=== PATIENT | female | born 1975 | race African-American/Black ===

== ENCOUNTER 2016-12-17 13:26 | Inpatient (IN) | payer OTHER, BC ==
[2016-12-17 13:31] VITALS: BMI 32.1
--- NOTE | 2016-12-17 13:45 | PDOC ---
History of Present Illness <Samantha Wynne - Last Filed: 12/17/16 16:01> - General History Source: Patient Exam Limitations: No Limitations - History of Present Illness Initial Comments: 12/17/16 13:48 Patient is a 41 year old female with significant PMH of HTN & ESRD on dialysis MWF who presents to ED after missing 2 weeks of dialysis. She lost her apartment 2 weeks ago and has been looking for a place to live so she has been too busy to come to dialysis as scheduled. Over that time period she has developed significant lethargy. She also reports chest tenderness, nausea, headache, mild shortness of breath. She states when she blows her nose, clotting blood is visible on tissue paper. Denies fever, chills, diarrhea constipation, blood in stool or urine. She denies any issues with graft in left arm: no erythema, tenderness or signs of infection. She states she has not been taking her anti-hypertensives during the last few weeks as well. <Mark Mahoney - Last Filed: 12/17/16 17:13> - General Chief Complaint: Weakness Stated Complaint: PAIN, WEAKNESS/Needs Dialysis Time Seen by Provider: 12/17/16 13:36 Past History <Samantha Wynne - Last Filed: 12/17/16 16:01> - Travel Traveled outside of the country in the last 30 days: No Close contact w/someone who was outside of country & ill: No - Past Medical History Anemia: Yes Asthma: No Cancer: No Cardiac Disorders: No CVA: No COPD: No CHF: No Dementia: No Diabetes: No Dialysis: Yes (Left arm graft) GI Disorders: No Disorders: Yes (PROTEIN IN URINE, CRI) HTN: Yes Hypercholesterolemia: No Liver Disease: No Suicide Attempt (Hx): No Seizures: No Thyroid Disease: Yes (HYPO) - Surgical History Abdominal Surgery: No Appendectomy: No Cardiac Surgery: No Cholecystectomy: No Lung Surgery: No Neurologic Surgery: No Orthopedic Surgery: No - Family Disease History Family Disease History: Diabetes: Brother - Reproductive History Cervical CA: No Dysfunctional Uterine Bleeding: No Ectopic : No Endometrial CA: No Polycystic Ovaries: No Tubal Ligation: No - Immunization History Immunization Up to Date: Yes - Psycho/Social/Smoking Cessation Hx Anxiety: No Suicidal Ideation: No Smoking Status: No Smoking History: Never smoked Have you smoked in the past 12 months: No Number of Cigarettes Smoked Daily: 0 Information on smoking cessation initiated: No Hx Alcohol Use: No Drug/Substance Use Hx: No Substance Use Type: None Hx Substance Use Treatment: No <Mark Mahoney - Last Filed: 12/17/16 17:13> - Past Medical History Allergies/Adverse Reactions: Allergies Allergy/AdvReac Type Severity Reaction Status Date / Time No Known Drug Allergies Allergy Verified 04/26/16 13:57 Home Medications: Ambulatory Orders Nifedipine ER [Procardia XL -] 60 mg PO DAILY 04/26/16 Miscellaneous Medical Supply [Outpatient Order] 1 each ASDIR #1 misc Losartan Potassium [Cozaar -] 50 mg PO DAILY #30 tablet 05/07/16 Sevelamer Carbonate [Renvela -] 800 mg PO TIDCM #90 tab 05/07/16 Review of Systems - Review of Systems Able to Perform ROS?: Yes Is the patient limited Syriac proficient: No Constitutional: Yes: Loss of Appetite, Malaise, Weakness HEENTM: Yes: Nose Bleeding Respiratory: Yes: Shortness of Breath Cardiac (ROS): Yes: Lightheadedness, Chest Tightness Neurological: Yes: Headache All Other Systems: Reviewed and Negative <Mark Mahoney - Last Filed: 12/17/16 17:13> *Physical Exam - Vital Signs Last Vital Signs Temp Pulse Resp BP Pulse Ox 97.4 F L 82 19 180/113 100 12/17/16 13:29 12/17/16 13:29 12/17/16 13:29 12/17/16 13:29 12/17/16 13:29 <Samantha Wynne - Last Filed: 12/17/16 16:01> - Vital Signs Last Vital Signs Temp Pulse Resp BP Pulse Ox 97.4 F L 82 19 180/113 100 12/17/16 13:29 12/17/16 13:29 12/17/16 13:29 12/17/16 13:29 12/17/16 13:29 - Physical Exam General Appearance: Yes: Nourished, Appropriately Dressed HEENT: positive: EOMI, ESA, Normal ENT Inspection, Pharynx Normal Neck: positive: Trachea midline, Supple Respiratory/Chest: positive: Lungs Clear, Normal Breath Sounds Cardiovascular: positive: Regular Rhythm, Regular Rate, S1, S2 Gastrointestinal/Abdominal: positive: Normal Bowel Sounds, Flat, Soft Musculoskeletal: positive: Normal Inspection Extremity: positive: Normal Inspection, Normal Range of Motion Integumentary: positive: Normal Color, Dry, Warm, Other (AV graft on left arm without signs of infection (no discharge, no erythema, no tenderness)) Neurologic: positive: attending physician II-XII NML intact, Fully Oriented, Alert, Normal Mood/ Affect, Motor Strength 5/5 <Mark Mahoney - Last Filed: 12/17/16 17:13> ED Treatment Course - LABORATORY CBC & Chemistry Diagram: 12/17/16 14:43 12/17/16 14:45 - ADDITIONAL ORDERS Additional order review: Laboratory Results 12/17/16 12/17/16 14:45 14:45 INR 1.06 Sodium 139 Potassium 6.5 H* D Chloride 105 Carbon Dioxide 15 L D Anion Gap 19 H BUN 147 H* D Creatinine 27.3 H* D Creat Clearance w eGFR 1.34 Random Glucose 85 Calcium 8.9 Magnesium 2.9 H D Total Bilirubin 0.4 AST 4 L D ALT 12 D Alkaline Phosphatase 72 Creatine Kinase 111 Troponin I 0.02 Total Protein 8.1 Albumin 4.0 D 12/17/16 14:43 RBC 2.97 L MCV 102.2 H MCHC 32.4 RDW 14.9 MPV 9.4 Neutrophils % 49.6 Lymphocytes % 32.3 D Monocytes % 12.6 H Eosinophils % 4.1 Basophils % 1.4 - Medications Given in the ED: ED Medications Discontinued Medications Generic Name Dose Route Start Last Admin Trade Name Baldemar PRN Reason Stop Dose Admin Losartan Potassium 50 mg 12/17/16 14:00 12/17/16 14:58 Cozaar - PO 12/17/16 14:01 50 mg ONCE ONE Administration <Samantha Wynne - Last Filed: 12/17/16 16:01> - LABORATORY CBC & Chemistry Diagram: 12/17/16 14:43 12/17/16 14:45 <Mark Mahoney - Last Filed: 12/17/16 17:13> Medical Decision Making - Medical Decision Making 12/17/16 16:01 Labs d/w Dr. Lucia, will dialyze presently. Will not treat the potassium medically, as she will go to dialysis shortly. <Samantha Wynne - Last Filed: 12/17/16 16:01> - Medical Decision Making 12/17/16 14:04 Patient's symptoms likely due to 2 weeks of missed dialysis. Ordered CBC, CMP, Mg, Phos, Coagulation profile, & EKG. Will restart Losartan as patient's blood pressure is elevated. Will attempt to get in contact with her appliance service technician. 12/17/16 14:59 Discussed case with Tie Up Worker Dr Lucia. Awaiting lab results but will most likely dialyze later today, and likely again tomorrow. 12/17/16 16:02 Creatinine 27. Potassium 6.5. Phosphorus too high to be measured at present. Patient will need to be admitted for dialysis today and tomorrow. Hyperkalemia will be managed by Dr Lucia. Will discuss case with hospitalist service for admission. 12/17/16 17:11 Discussed case with hospitalist Dr Mcdonough. Agrees to admit the patient for acute on chronic renal failure & electrolyte abnormalities. Dialysis scheduled for later this afternoon. <Mark Mahoney - Last Filed: 12/17/16 17:13> *DC/Admit/Observation/Transfer <Samantha Wynne - Last Filed: 12/17/16 16:01> - Discharge Dispostion Admit: Yes <Mark Mahoney - Last Filed: 12/17/16 17:13> Diagnosis at time of Disposition: [id number] renal failure
[2016-12-17] MEDS ORDERED: LOSARTAN POTASSIUM 50 MG TABLET (FP) PO ONE (14:00)
--- NOTE | 2016-12-17 14:50 | PDOC ---
Attending Attestation - Resident Resident Name: MaruMark - ED Attending Attestation I have performed the following: I have examined & evaluated the patient, The case was reviewed & discussed with the resident, I agree w/resident's findings & plan, Exceptions are as noted - HPI HPI: 41 yo F with history HTN, ESRD on HD MWF presents with fluid overload, weakness , fatigue. She has been unable to get dialysis for 2 weeks due to losing her apartment, financial difficulty. She has been off her blood pressure medication for the two weeks, has been unable to get a refill. Denies FLORENTINO, SOB, cp, numbness. - Physicial Exam PE: GENERAL: Awake, alert, and fully oriented, in no acute distress HEAD: No signs of trauma EYES: PERRLA, EOMI, sclera anicteric, conjunctiva clear ENT: Auricles normal inspection, hearing grossly normal, nares patent, oropharynx clear without exudates. Moist mucosa NECK: Normal ROM, supple, no lymphadenopathy, JVD, or masses LUNGS: Breath sounds equal, clear to auscultation bilaterally. No wheezes, and no crackles HEART: Regular rate and rhythm, normal S1 and S2, no murmurs, rubs or gallops ABDOMEN: Soft, nontender, normoactive bowel sounds. No guarding, no rebound. No masses EXTREMITIES: Normal range of motion, no edema. No clubbing or cyanosis. No cords, erythema, or tenderness NEUROLOGICAL: Cranial nerves II through XII grossly intact. Normal speech, normal gait SKIN: Warm, Dry, normal turgor, no rashes or lesions noted. - Medical Decision Making Case d/w Dr. Lucia, will arrange urgent dialysis. Will not medically treat the potassium at this time, as dialysis is being arranged presently.
[2016-12-17] MEDS ORDERED: LOSARTAN POTASSIUM 25 MG TABLET ONE (14:54)
[2016-12-17] MEDS ORDERED: NIFEdipine E.R 60 MG TABLET (UD) PO SCH (15:00)
--- NOTE | 2016-12-17 15:04 | CONSULT ---
Consult - text type - Consultation Consultation Note: Renal Consult for ESRD on HD This is a 41 year old woman with PMhx of ESRD on HD, Hypertension, Secondary hyperparathyrodism, CKD related anemia presented to the ED after missing 2 weeks of dialysis with complaints weakness, nausea, nose bleeds, and chest pain. Pt states that she lost her apartment and has been too busy to go to dialysis. Pt reports feeling worsening symptoms for about 1 week. + abnormal taste in the mouth. Reports not taking any her of hypertensive medications. Pt also has some headache. PMhx: as above Allergies: NKDA Family Hx: NC Social hx: No T/A/D ROS: as per HPI Home Meds: Medication Instructions Recorded Nifedipine ER [Procardia XL -] 60 mg PO DAILY 04/26/16 Miscellaneous Medical Supply 1 each ASDIR #1 misc 05/05/16 [Outpatient Order] Losartan Potassium [Cozaar -] 50 mg PO DAILY #30 tablet 05/07/16 Sevelamer Carbonate [Renvela -] 800 mg PO TIDCM #90 tab 05/07/16 Vital Signs Temperature 97.4 F L 12/17/16 13:29 Pulse Rate 82 12/17/16 13:29 Respiratory Rate 19 12/17/16 13:29 Blood Pressure 180/113 12/17/16 13:29 O2 Sat by Pulse Oximetry (%) 100 12/17/16 13:29 Intake & Output 12/14/16 12/15/16 12/16/16 12/17/16 23:59 23:59 23:59 23:59 Weight 176 lb Gen: NAD, awake and alert HEENT: NC/AT, No JVD, Neck Supple CVS: RRR, No M/R Lungs: Dec BS lung bases, no rales Abd: soft NT/ND Ext: No edema, clubbing or cyanosis : No bladder distension Labs pending A/P 41 year old woman with PMhx of ESRD on HD, Hypertension, Secondary hyperparathyrodism, CKD related anemia presented to the ED after missing 2 weeks of dialysis with complaints weakness, nausea, nose bleeds, and chest pain. #ESRD on HD with multiple missed dialysis treatments and uremic symptoms Pt will need dialysis today but will need to check BUN/Cr prior to treatment if BUN very elevated will plan on short dialysis treatment to minimize risk of dialysis dysequilibrium will likely need additional dialysis tomorrow Pt has outpatient HD unit and can resume dialysis there on discharge Dose all meds for intermittent HD #Uncontrolled Hypertension from volume expansion and non-compliance with medications Procadia 60mg Daily for now Can resume Losartan after dialysis treatments restarted #CKD releated Anemia Check CBC, transfuse for Hgb < 8 #Renal osteodystrophy Check Phos levels continue Renvela TID with meals #Chest Pain Check Cardiac Enzymes Thank you Will follow Carl Lucia DO
[2016-12-17 15:18] LABS: BASOPHIL 1.4 % (0-2.0); EOSINOPHIL 4.1 % (0-4.5); MCH 33.1 pg (25.7-33.7); MCHC 32.4 g/dl (32.0-36.0); MEAN CELL VOLUME 102.2 fl (80-96); MEAN PLT VOLUME 9.4 fl (7.5-11.1); NEUTROPHILS 49.6 % (42.8-82.8); PLATELET COUNT 134 K/MM3 (134-434); RDW 14.9 % (11.6-15.6); WHITE BLOOD COUNT 5.7 K/mm3 (4.0-10.0)
[2016-12-17 15:31] LABS: INR 1.06 (0.82-1.09); PROTHROMBIN TIME (PATIENT) 11.7 SEC (9.98-11.88)
[2016-12-17 15:37] LABS: CALCIUM 8.9 mg/dL (8.5-10.1); MAGNESIUM 2.9 mg/dL (1.8-2.4)
[2016-12-17 15:47] LABS: BILIRUBIN,TOTAL 0.4 mg/dL (0.2-1.0); TOT PROT 8.1 g/dl (6.4-8.2); TROPONIN I 0.02 ng/ml (0.00-0.05)
[2016-12-17 15:59] LABS: CREATININE 27.3 mg/dL (0.55-1.02)
--- NOTE | 2016-12-17 16:14 | EKG ---
Test Reason : Blood Pressure : / mmHG Vent. Rate : 076 BPM Atrial Rate : 076 BPM P-R Int : 202 ms QRS Dur : 086 ms QT Int : 426 ms P-R-T Axes : 026 054 074 degrees QTc Int : 479 ms NORMAL SINUS RHYTHM POOR DATA QUALITY, INTERPRETATION MAY BE ADVERSELY AFFECTED Confirmed by REGINALDO GARCIA MD ([id number]) on 12/17/2016 4:13:53 PM Referred By: Confirmed By:REGINALDO GARCIA MD
[2016-12-17 16:35] LABS: PHOSPHOROUS 8.2 mg/dL (2.5-4.9)
--- NOTE | 2016-12-17 18:05 | PN ---
Teaching Attending Note Name of Resident: Campbell Chopra ATTENDING PHYSICIAN STATEMENT I saw and evaluated the patient. I reviewed the resident's note and discussed the case with the resident. I agree with the resident's findings and plan as documented. SUBJECTIVE:41yo F reports to the ER c/o generalized weakness and nausea for several days. also c/o CP on exertion after walking 2 blocks assoc with sob. substernal sharp pain non radiating for the past week. she has not had HD for 2 weeks now due to becoming homeless and not having the time to go to her HD center. she has not taken her home meds in several months. admits to having poor compliance for years. on HD due to uncontrolled HTN and had miscarriage this time last year due to not being compliant. had echo done at that time but no stress test or other cardiac workup. denies fever, chills, V/C/D, blurred vision OBJECTIVE: Last Vital Signs Temp Pulse Resp BP Pulse Ox 97.4 F L 82 19 180/113 100 12/17/16 13:29 12/17/16 13:29 12/17/16 13:29 12/17/16 13:29 12/17/16 13:29 General NAD CV S1 S2 RRR no murmur/rub/gallop no chest wall tenderness Lungs CTA B/L no wheezing/rales/rhonchi Abdomen soft NT/ND obese Extremities +palpable thrill LUE graft ASSESSMENT AND PLAN: 41yo F wtih PMH ESRD on HD, HTN, and secondary hyperparathyroidism presented to the ER and was admitted for further evaluation of their emergent condition 1. Acute Uremia- due to missed HD. plan for emergent HD to correct uremic symptoms. Nephrology consulted. plan for repeat HD tomorrow. monitor BUN. cont renelva 2. HTN urgency- due to medication non-compliance. given losartan in the ER. she states she never took losartan previously prescribed on discharged in April of last year. will monitor BP closely. re-start nifedipine and slowly control BP 3. CP- r/o ACS. check cardiac markers x2. will need cardiac workup as outpatient 4. Macrocytic anemia- Hgb at baseline. states she receives epo with HD typically. no signs of bleeding. no indication for txn 5. DVT ppx- eam
--- NOTE | 2016-12-17 18:58 | HP ---
CHIEF COMPLAINT: weakness PCP: HISTORY OF PRESENT ILLNESS: 41 y/o F with PMH of ESRD on HD (MWF) secondary to htn, HTN, secondary hyperparathyroidism comes to ER after feeling weak and nauseous for 1 week. Pt has also developed exertional chest pain which comes about after walking 1-2 blocks and is relieved with 1-2 min of rest. Pt has missed dialysis for last 2 weeks as she is homeless. She is non-compliant with meds and following up with physicians as an outpatient. Had miscarriage last year due to non-compliance. She has been prescribed antihypertensives in the past but stated that she does not take them. ER course was notable for: (1) EKG (2) (3) Recent Travel: PAST MEDICAL HISTORY: HTN, ESRD on HD, secondary hyperparathyroidism PAST SURGICAL HISTORY: L AV graft Social History: Smoking: denies Alcohol: denies Drugs: denies Allergies No Known Drug Allergies Allergy (Verified 04/26/16 13:57) HOME MEDICATIONS: Medication Instructions Recorded Nifedipine ER [Procardia XL -] 60 mg PO DAILY 04/26/16 Miscellaneous Medical Supply 1 each ASDIR #1 misc 05/05/16 [Outpatient Order] Losartan Potassium [Cozaar -] 50 mg PO DAILY #30 tablet 05/07/16 Sevelamer Carbonate [Renvela -] 800 mg PO TIDCM #90 tab 05/07/16 REVIEW OF SYSTEMS CONSTITUTIONAL: generalized weakness Absent: fever, chills, diaphoresis,malaise, loss of appetite, weight change HEENT: Absent: rhinorrhea, nasal congestion, throat pain, throat swelling, difficulty swallowing, mouth swelling, ear pain, eye pain, visual changes CARDIOVASCULAR: chest pain (exertional) Absent: syncope, palpitations, irregular heart rate, lightheadedness, peripheral edema RESPIRATORY: sob Absent: cough, dyspnea with exertion, orthopnea, wheezing, stridor, hemoptysis GASTROINTESTINAL: Absent: abdominal pain, abdominal distension, nausea, vomiting, diarrhea, constipation, melena, hematochezia GENITOURINARY: Absent: dysuria, frequency, urgency, hesitancy, hematuria, flank pain, genital pain MUSCULOSKELETAL: Absent: myalgia, arthralgia, joint swelling, back pain, neck pain SKIN: Absent: rash, itching, pallor HEMATOLOGIC/IMMUNOLOGIC: Absent: easy bleeding, easy bruising, lymphadenopathy, frequent infections ENDOCRINE: Absent: unexplained weight gain, unexplained weight loss, heat intolerance, cold intolerance NEUROLOGIC: Absent: headache, focal weakness or paresthesias, dizziness, unsteady gait, seizure, mental status changes, bladder or bowel incontinence PSYCHIATRIC: Absent: anxiety, depression, suicidal or homicidal ideation, hallucinations. PHYSICAL EXAMINATION Vital Signs - 24 hr 12/17/16 17:49 Pulse Rate [ 83 Radial] Respiratory 20 Rate Blood Pressure 180/109 [Right Arm] O2 Sat by Pulse 97 Oximetry (%) GENERAL: Awake, alert, and fully oriented, in no acute distress. HEAD: Normal with no signs of trauma. EYES: Pupils equal, round and reactive to light, extraocular movements intact, sclera anicteric, conjunctiva clear. No lid lag. EARS, NOSE, THROAT: Ears normal, nares patent, oropharynx clear without exudates. Moist mucous membranes. NECK: Normal range of motion, supple without lymphadenopathy, JVD, or masses. LUNGS: Breath sounds equal, clear to auscultation bilaterally. No wheezes, and no crackles. No accessory muscle use. HEART: Regular rate and rhythm, normal S1 and S2 without murmur, rub or gallop. ABDOMEN: Soft, nontender, not distended, normoactive bowel sounds, no guarding, no rebound, no masses. No hepatomegaly or splenomegaly. MUSCULOSKELETAL: Normal range of motion at all joints. No bony deformities or tenderness. No CVA tenderness. UPPER EXTREMITIES: 2+ pulses, warm, well-perfused. No cyanosis. No clubbing. Cap refill <2 seconds. No peripheral edema. LOWER EXTREMITIES: 2+ pulses, warm, well-perfused. No calf tenderness. No peripheral edema. NEUROLOGICAL: Cranial nerves II-XII intact. Normal speech. Normal gait. PSYCHIATRIC: Cooperative. Good eye contact. Appropriate mood and affect. SKIN: Warm, dry, normal turgor, no rashes or lesions noted. CBCD WBC 5.7 K/mm3 (4.0-10.0) D 12/17/16 14:43 RBC 2.97 M/mm3 (3.60-5.2) L 12/17/16 14:43 Hgb 9.8 GM/dL (10.7-15.3) L 12/17/16 14:43 Hct 30.3 % (32.4-45.2) L 12/17/16 14:43 MCV 102.2 fl (80-96) H 12/17/16 14:43 MCHC 32.4 g/dl (32.0-36.0) 12/17/16 14:43 RDW 14.9 % (11.6-15.6) 12/17/16 14:43 Plt Count 134 K/MM3 (134-434) D 12/17/16 14:43 MPV 9.4 fl (7.5-11.1) 12/17/16 14:43 CMP Sodium 139 mmol/L (136-145) 12/17/16 14:45 Potassium 6.5 mmol/L (3.5-5.1) H* D 12/17/16 14:45 Chloride 105 mmol/L (98-107) 12/17/16 14:45 Carbon Dioxide 15 mmol/L (21-32) L D 12/17/16 14:45 Anion Gap 19 (8-16) H 12/17/16 14:45 BUN mg/dL (7-18) 12/17/16 14:45 Creatinine 27.3 mg/dL (0.55-1.02) H* D 12/17/16 14:45 Creat Clearance w eGFR 1.34 (>60) 12/17/16 14:45 Random Glucose 85 mg/dL (74-106) 12/17/16 14:45 Calcium 8.9 mg/dL (8.5-10.1) 12/17/16 14:45 Total Bilirubin 0.4 mg/dL (0.2-1.0) 12/17/16 14:45 AST 4 U/L (15-37) L D 12/17/16 14:45 ALT 12 U/L (12-78) D 12/17/16 14:45 Alkaline Phosphatase 72 U/L (45-117) 12/17/16 14:45 Total Protein 8.1 g/dl (6.4-8.2) 12/17/16 14:45 Albumin 4.0 g/dl (3.4-5.0) D 12/17/16 14:45 CARDIAC ENZYMES Creatine Kinase 111 IU/L (26-192) 12/17/16 14:45 Troponin I 0.02 ng/ml (0.00-0.05) 12/17/16 14:45 Active Medications Acetaminophen (Tylenol -) 650 mg PO Q4H PRN PRN Reason: FEVER OR PAIN Nifedipine (Procardia Xl -) 60 mg PO DAILY JILLIAN Sevelamer Carbonate (Renvela -) 800 mg PO TIDCM JILLIAN ASSESSMENT/PLAN: 41 y/o F with PMH of ESRD on HD (MWF), HTN, secondary hyperparthyroidism presents to ER after missing HD for last 2 weeks w/ c/o weakness, chest pain, and nausea. -Acute Uremia -Cr: 27.3 -Emergent HD since pt has missed HD for last 2 weeks -Nephrology on board -repeat HD tomorrow -f/u BUN/Cr -Chest pain -most likely secondary to uremia -will monitor trops to r/o ACS, first trop is neg -EKG shows NSR -HTN Urgency -c/w nifedipine 60 mg PO qd -monitor BP -Anemia -most likely secondary to aocd from CKD, will monitor Hgb -FEN -no fluids -hyperkalemia - 6.5 - no medical management at this time as pt will have dialysis soon -sodium controlled diet -Dispo: -Can most likely be discharged after dialysis tomorrow, and importance of medical compliance will be stressed. Problem List - Problem (1) Acute on chronic renal failure Code(s): N17.9 - ACUTE KIDNEY FAILURE, UNSPECIFIED N18.9 - CHRONIC KIDNEY DISEASE, UNSPECIFIED (2) Anemia in CKD (chronic kidney disease) Code(s): N18.9 - CHRONIC KIDNEY DISEASE, UNSPECIFIED D63.1 - ANEMIA IN CHRONIC KIDNEY DISEASE (3) Chronic renal insufficiency Code(s): N18.9 - CHRONIC KIDNEY DISEASE, UNSPECIFIED Qualifiers: Chronic kidney disease stage: stage 4 (severe) Qualified Code(s): N18.4 - Chronic kidney disease, stage 4 (severe) (4) Headache Code(s): R51 - HEADACHE (5) Chronic hypertension Code(s): I10 - ESSENTIAL (PRIMARY) HYPERTENSION (6) ESRD (end stage renal disease) Code(s): N18.6 - END STAGE RENAL DISEASE (7) Hypertension Code(s): I10 - ESSENTIAL (PRIMARY) HYPERTENSION Qualifiers: Hypertension type: essential hypertension Qualified Code(s): I10 - Essential (primary) hypertension Visit type - Emergency Visit Emergency Visit: Yes ED Registration Date: 12/17/16 Care time: The patient presented to the Emergency Department on the above date and was hospitalized for further evaluation of their emergent condition. - New Patient This patient is new to me today: Yes Date on this admission: 12/17/16 - Critical Care Critical Care patient: No
[2016-12-17 20:20] LABS: CALCIUM 8.4 mg/dL (8.5-10.1)
[2016-12-17 20:23] LABS: TROPONIN I 0.02 ng/ml (0.00-0.05)
[2016-12-17 20:39] LABS: CREATININE 20.5 mg/dL (0.55-1.02)
[2016-12-17] MEDS: ACETAMINOPHEN 325 MG TABLET (FP) PO PRN (22:13)
[2016-12-17] MEDS: NIFEdipine E.R 60 MG TABLET (UD) PO SCH (23:12)
[2016-12-18] MEDS: ACETAMINOPHEN 325 MG TABLET (FP) PO PRN (02:36)
[2016-12-18] MEDS ORDERED: traMADol HCL 50 MG TABLET PO ONE (04:00)
[2016-12-18 08:16] LABS: MCH 33.6 pg (25.7-33.7); MCHC 33.8 g/dl (32.0-36.0); MEAN CELL VOLUME 99.6 fl (80-96); MEAN PLT VOLUME 9.2 fl (7.5-11.1); PLATELET COUNT 139 K/MM3 (134-434); RDW 14.7 % (11.6-15.6); WHITE BLOOD COUNT 3.4 K/mm3 (4.0-10.0)
[2016-12-18] MEDS: SEVELAMER CARBONATE 800 MG TAB (FP) PO SCH ×3 (08:19→17:57)
[2016-12-18] MEDS ORDERED: oxyCODONE HCL 5 MG TABLET PO ONE (08:27)
[2016-12-18] MEDS: NIFEdipine E.R 60 MG TABLET (UD) PO SCH (09:00)
[2016-12-18 09:17] LABS: CALCIUM 8.9 mg/dL (8.5-10.1)
[2016-12-18 10:06] LABS: CREATININE 15.6 mg/dL (0.55-1.02)
--- NOTE | 2016-12-18 10:55 | PN ---
Progress Note (short form) - Note Progress Note: Renal Follow up for ESRD Pt seen and examined at the bedside has headache and nausea that was made worse after dialysis no vomiting no sob or chest pain s/p dialysis yesterday Vital Signs Temperature 97.4 F L 12/18/16 07:27 Pulse Rate 93 H 12/18/16 07:27 Respiratory Rate 20 12/18/16 10:00 Blood Pressure 146/98 12/18/16 07:27 O2 Sat by Pulse Oximetry (%) 98 12/18/16 10:00 Intake & Output 12/15/16 12/16/16 12/17/16 12/18/16 23:59 23:59 23:59 23:59 Weight 176 lb Gen: NAD, awake and alert CVS: RRR, No M/R Lungs: Dec BS lung bases, no rales Abd: soft NT/ND Ext: No edema, clubbing or cyanosis CBC, BMP 12/18/16 06:40 12/18/16 06:40 Current Medications Acetaminophen (Tylenol -) 650 mg PO Q4H PRN PRN Reason: FEVER OR PAIN Last Admin: 12/18/16 02:36 Dose: 650 mg Nifedipine (Procardia Xl -) 60 mg PO DAILY [facility] Last Admin: 12/18/16 09:00 Dose: 60 mg Sevelamer Carbonate (Renvela -) 800 mg PO TIDCM [facility] Last Admin: 12/18/16 08:19 Dose: 800 mg A/P 41 year old woman with PMhx of ESRD on HD, Hypertension, Secondary hyperparathyrodism, CKD related anemia presented to the ED after missing 2 weeks of dialysis with complaints weakness, nausea, nose bleeds, and chest pain. #ESRD on HD with multiple missed dialysis treatments and uremic symptoms s/p dialysis yesterday pt has FLORENTINO and Nausea today that could be secondary to dialysis disequilibrium will hold off dialysis today symptoms should improve as she gets further from dialysis pain control and anti nausea meds as needed if pt feels better tomorrow can be discharged home and resume dialysis as outpatient #Uncontrolled Hypertension from volume expansion and non-compliance with medications Cnotinue Procardia 60mg Daily if BP > 150/90 today can add Labetalol 200mg Q12h Hold off restarted losaratn until pt is on consistent HD #Renal osteodystrophy Check Phos levels continue Renvela TID with meals Carl Lucia DO
[2016-12-18] MEDS ORDERED: ONDANSETRON 8 MG TABLET (FP) PO PRN (11:18)
[2016-12-18] MEDS ORDERED: ONDANSETRON 4 MG TABLET PO ONE (11:22)
[2016-12-18] MEDS ORDERED: oxyCODONE HCL 5 MG TABLET PO PRN ×2 (11:41→13:10)
[2016-12-18] MEDS ORDERED: DEXAMETHASONE SOD PHOSPHATE 10 MG/1 ML VIAL IVPB ONE (13:12)
[2016-12-18] MEDS ORDERED: METOCLOPRAMIDE HCL INJECTION 10 MG/2 ML VIAL IVPB ONE (13:12)
--- NOTE | 2016-12-18 13:12 | PN ---
Progress Note (short form) - Note Progress Note: c/o extreme FLORENTINO, no relief with narcotic. assoc with nausea and anorexia. denies CP, SOB,fever, chills, V/C/D. no repeated episodes of CP Current Medications Generic Name Dose Route Start Last Admin Trade Name Freq PRN Reason Stop Dose Admin Acetaminophen 650 mg 12/17/16 18:08 12/18/16 02:36 Tylenol - PO 650 mg Q4H PRN Administration FEVER OR PAIN Nifedipine 60 mg 12/17/16 23:15 12/18/16 09:00 Procardia Xl - PO 60 mg DAILY JILLIAN Administration Ondansetron HCl 8 mg 12/18/16 11:18 12/18/16 11:27 Zofran - PO 8 mg Q8H PRN Administration NAUSEA Oxycodone HCl 5 mg 12/18/16 11:41 Roxicodone - PO Q6H PRN PAIN Sevelamer Carbonate 800 mg 12/18/16 08:00 12/18/16 11:26 Renvela - PO 800 mg TIDCM JILLIAN Administration Last Vital Signs Temp Pulse Resp BP Pulse Ox 97.4 F L 93 H 20 146/98 98 12/18/16 07:27 12/18/16 07:27 12/18/16 10:00 12/18/16 07:27 12/18/16 10:00 General mild distress due to pain, sitting slummed over in chair holding head CV S1 S2 RRR no murmur/rub/gallop Lungs CTA B/L no wheezing/rales/rhonchi Abdomen soft NT/ND obese Extremities no pedal edema, +palpable thrill LUE graft CBCD WBC 3.4 K/mm3 (4.0-10.0) L D 12/18/16 06:40 RBC 3.50 M/mm3 (3.60-5.2) L 12/18/16 06:40 Hgb 11.8 GM/dL (10.7-15.3) D 12/18/16 06:40 Hct 34.8 % (32.4-45.2) 12/18/16 06:40 MCV 99.6 fl (80-96) H 12/18/16 06:40 MCHC 33.8 g/dl (32.0-36.0) 12/18/16 06:40 RDW 14.7 % (11.6-15.6) 12/18/16 06:40 Plt Count 139 K/MM3 (134-434) 12/18/16 06:40 MPV 9.2 fl (7.5-11.1) 12/18/16 06:40 CMP Sodium 140 mmol/L (136-145) 12/18/16 06:40 Potassium 4.3 mmol/L (3.5-5.1) 12/18/16 06:40 Chloride 97 mmol/L (98-107) L D 12/18/16 06:40 Carbon Dioxide 25 mmol/L (21-32) D 12/18/16 06:40 Anion Gap 18 (8-16) H 12/18/16 06:40 BUN 68 mg/dL (7-18) H D 12/18/16 06:40 Creatinine 15.6 mg/dL (0.55-1.02) H* D 12/18/16 06:40 Creat Clearance w eGFR 1.34 (>60) 12/17/16 14:45 Calcium 8.9 mg/dL (8.5-10.1) 12/18/16 06:40 Total Bilirubin 0.4 mg/dL (0.2-1.0) 12/17/16 14:45 AST 4 U/L (15-37) L D 12/17/16 14:45 ALT 12 U/L (12-78) D 12/17/16 14:45 Alkaline Phosphatase 72 U/L (45-117) 12/17/16 14:45 Total Protein 8.1 g/dl (6.4-8.2) 12/17/16 14:45 Albumin 4.0 g/dl (3.4-5.0) D 12/17/16 14:45 ASSESSMENT AND PLAN: 41yo F wtih PMH ESRD on HD, HTN, and secondary hyperparathyroidism presented to the ER and was admitted for further evaluation of their emergent condition 1. Acute Uremia- due to missed HD. s/p HD yesterday. now with symptoms likely due to dialysis disequilibrium. will hold HD for today and repeat labs tomorrow. pending on results determine if requires HD or can wait till normal schedule (TTS)cont renelva 2. FLORENTINO- no relief with narcotic. will give cocktail for FLORENTINO (Dexamethasone 10mg, Regaln, Toradol, and Mg) although will hold toradol and Mg due to kidney function. monitor for response. if no improvement will consider CT head. 3. HTN urgency- improved but above goal. will monitor for now. consider increasing nifedipine if remains elevated. 4. CP- r/o ACS. cardiac markers neg x2. no repeated episodes. 5. Macrocytic anemia- Hgb at baseline. states she receives epo with HD typically. no signs of bleeding. no indication for txn 6. DVT ppx- eam Visit type - Emergency Visit Emergency Visit: Yes ED Registration Date: 12/17/16 Care time: The patient presented to the Emergency Department on the above date and was hospitalized for further evaluation of their emergent condition. - New Patient This patient is new to me today: No - Critical Care Critical Care patient: No - Discharge Referral Referred to [facility] Med P.C.: No
[2016-12-19] MEDS: ACETAMINOPHEN 325 MG TABLET (FP) PO PRN (06:09)
[2016-12-19 08:34] LABS: CALCIUM 8.5 mg/dL (8.5-10.1)
[2016-12-19] MEDS: SEVELAMER CARBONATE 800 MG TAB (FP) PO SCH (08:56)
[2016-12-19] MEDS: NIFEdipine E.R 60 MG TABLET (UD) PO SCH (09:00)
[2016-12-19 09:02] LABS: CREATININE 17.5 mg/dL (0.55-1.02)
--- NOTE | 2016-12-19 09:43 | DS ---
Physical Exam: SUBJECTIVE: Patient seen and examined. curerntly asymptomatic. FLORENTINO broke after IV medications given yesterday. tolerated dinner and breakfast well. denies CP, palpitaitons, N/V/C/D OBJECTIVE: Vital Signs Period Temp Pulse Resp BP Sys/[place] Pulse Ox Last 24 Hr 97.5 F-98.8 F 92-97 16-20 136-149/87-89 98-98 PHYSICAL EXAM GENERAL: The patient is awake, alert, and fully oriented, in no acute distress. HEAD: Normal with no signs of trauma. EYES: PERRL, extraocular movements intact, sclera anicteric, conjunctiva clear. ENT: Ears normal, nares patent, oropharynx clear without exudates, moist mucous membranes. NECK: Trachea midline, full range of motion, supple. LUNGS: Breath sounds equal, clear to auscultation bilaterally, no wheezes, no crackles, no accessory muscle use. HEART: Regular rate and rhythm, S1, S2 without murmur, rub or gallop. ABDOMEN: Soft, nontender, nondistended, normoactive bowel sounds, no guarding, no rebound, no hepatosplenomegaly, no masses. EXTREMITIES: 2+ pulses, warm, well-perfused, trace pitting edema NEUROLOGICAL: Cranial nerves II through XII grossly intact. Normal speech, gait not observed. PSYCH: Normal mood, normal affect. SKIN: Warm, dry, normal turgor, no rashes or lesions noted. LABS Laboratory Results - last 24 hr 12/18/16 12/19/16 06:40 07:15 Sodium 140 139 Potassium 4.3 4.3 Chloride 97 L D 99 Carbon Dioxide 25 D 25 Anion Gap 18 H 15 BUN 68 H D 76 H Creatinine 15.6 H* D 17.5 H* Random Glucose 139 H 82 D Calcium 8.9 8.5 HOSPITAL COURSE: Date of Admission:12/17/16 Date of Discharge: 12/19/16 admitting diagnosis: Acute uremic syndrome, FLORENTINO, HTN urgency Pre hospital course 41yo F reports to the ER c/o generalized weakness and nausea for several days. also c/o CP on exertion after walking 2 blocks assoc with sob. substernal sharp pain non radiating for the past week. she has not had HD for 2 weeks now due to becoming homeless and not having the time to go to her HD center. she has not taken her home meds in several months. admits to having poor compliance for years. on HD due to uncontrolled HTN and had miscarriage this time last year due to not being compliant. had echo done at that time but no stress test or other cardiac workup. denies fever, chills, V/C/D, blurred vision Subsequent hospital course admitted to medicine. received urgent HD. medications re-started to control BP. after HD session developed HD dysequilibrium and was nauseated with severe FLORENTINO not relieved with narcotics. Cocktail of dexamethasone and reglan given with resolution of FLORENTINO. tolerating diet. BUN decreased to 74 and K 4.3. Educated pt at great detail with present at bedside the risks of not being compliant with medications and receiving regular dialysis can lead to stroke, cardiac arrest and ultimately . verbalized understanding and agreed to be compliant. d/c home on renelva and nifedipine. instructed to report for HD on tuesday at regular schedule. Minutes to complete discharge: 35 Discharge Summary Reason For Visit: ACUTE CHRONIC RENAL FAILURE Current Active Problems Acute on chronic renal failure (Acute) Dialysis disequilibrium syndrome (Acute) Headache (Acute) Hypertensive urgency (Acute) Metabolic acidosis (Acute) Uremia, acute (Acute) Anemia in CKD (chronic kidney disease) (Chronic) Condition: Improved - Instructions Diet, Activity, Other Instructions: It is important that you take your medications daily. Take tylenol as needed for headaches. Do not take more than 1,000 mg in a 4 hour period or 4,000 mg in 24Hour period Follow up at your dialysis center for your regular scheduled dialysis on Tuesday Monitor the amount of water your drink as well as eat a low potassium diet Follow up with your primary care doctor this week. Discuss with him your increased risk for heart disease for further workup and evaluation Return to the hospital if you develop blurred vision, chest pain or difficulty breathing Disposition: HOME - Home Medications Comprehensive Discharge Medication List: Ambulatory Orders Sevelamer Carbonate [Renvela -] 800 mg PO TIDCM #90 tab 05/07/16 Nifedipine ER [Procardia XL -] 60 mg PO DAILY #30 tab.er.24 12/19/16 This patient is new to me today: No Emergency Visit: Yes ED Registration Date: 12/17/16 Care time: The patient presented to the Emergency Department on the above date and was hospitalized for further evaluation of their emergent condition. Critical Care patient: No - Discharge Referral Referred to [facility] Med P.C.: No
[2016-12-19 09:58] VITALS: BP 133/84; PULSE 87; TEMP 98.2
[2016-12-24 00:07] LABS: HEP B SURFACE AB Reactive (.)
== END 2016-12-19 10:01 | disposition home or self-care (01) | DRG 683 ==
LOC: JER 13:26 → JERBED 17:20 → J5S 22:02
PROVIDERS: ADMIT Internal Medicine; ATTEND Internal Medicine
PROC: 5A1D60Z (ICD-10-PCS; principal; 2016-12-17)
DX: N17.9 Acute kidney failure, unspecified (principal); I12.0 Hypertensive chronic kidney disease with stage 5 chronic kidney disease or end stage renal disease; E87.2 Acidosis; N18.6 End stage renal disease; Z99.2 Dependence on renal dialysis; D63.1 Anemia in chronic kidney disease; R07.9 Chest pain, unspecified; R51 Headache
CPT/HCPCS: 36415; 80048; 80053; 82550; 83735; 84100; 84484; 85025; 85027; 85610; 86704; 86706; 86708; 86803; 87340; 93005; 93010; 99284-25

== ENCOUNTER 2016-12-29 09:11 | Emergency (ER) | payer OTHER, BC ==
[2016-12-29 09:23] VITALS: TEMP 98.4; BMI 31.8
--- NOTE | 2016-12-29 11:38 | PDOC ---
History of Present Illness - General Chief Complaint: Rash Stated Complaint: RASH/ LOWER PELVIC PAIN Time Seen by Provider: 12/29/16 09:29 - History of Present Illness Initial Comments: 12/29/16 11:38 Ms. Orona is a 41 y/o female withe a PHM of ESRD on dialysis presenting with a rash along her left lower back and left labia. Pt. states that the rash started approximately two days ago on the left lower back. Pt. states that the rash was initially burning and painful and described the rash as blisters. The rash then migrated to the left labia. patient reports the area is painful and swollen. She was able to break 2 of the blisters. Since then the rash has been increasing in size. This has never happened to her before.Patient that she had chickenpox as a child and has never had the shingles virus. Denies vaginal discharge, vaginal bleeding, rectal bleeding, change in stool, dysuria, hematuria, frequency. Past History - Past Medical History Allergies/Adverse Reactions: Allergies Allergy/AdvReac Type Severity Reaction Status Date / Time No Known Drug Allergies Allergy Verified 12/29/16 09:18 Home Medications: Ambulatory Orders Nifedipine ER [Procardia XL -] 60 mg PO BID 12/29/16 Valacyclovir HCl [Valtrex -] 500 mg PO DAILY #10 tablet 12/29/16 Ciprofloxacin [Cipro (Restricted To Id)] 250 mg PO BID #6 tablet 12/31/16 Anemia: Yes Asthma: No Cancer: No Cardiac Disorders: No CVA: No COPD: No CHF: No Dementia: No Diabetes: No Dialysis: Yes (Left arm graft) GI Disorders: No Disorders: Yes (PROTEIN IN URINE, CRI) HTN: Yes Hypercholesterolemia: No Liver Disease: No Suicide Attempt (Hx): No Seizures: No Thyroid Disease: Yes (HYPO, ESRD) - Surgical History Abdominal Surgery: No Appendectomy: No Cardiac Surgery: No Cholecystectomy: No Lung Surgery: No Neurologic Surgery: No Orthopedic Surgery: No - Family Disease History Family Disease History: Diabetes: Brother - Reproductive History Is Patient Now?: No Cervical CA: No Dysfunctional Uterine Bleeding: No Ectopic : No Endometrial CA: No Polycystic Ovaries: No Tubal Ligation: No - Immunization History Immunization Up to Date: Yes - Psycho/Social/Smoking Cessation Hx Anxiety: No Suicidal Ideation: No Smoking Status: No Smoking History: Never smoked Have you smoked in the past 12 months: No Number of Cigarettes Smoked Daily: 0 Hx Alcohol Use: No Drug/Substance Use Hx: No Substance Use Type: None Hx Substance Use Treatment: No *Physical Exam - Vital Signs Last Vital Signs Temp Pulse Resp BP Pulse Ox 98.4 F 110 H 18 106/75 98 12/29/16 09:19 12/29/16 09:19 12/29/16 09:19 12/29/16 09:19 12/29/16 09:19 - Physical Exam Comments: 12/29/16 11:43 GENERAL: Well developed, well nourished. Awake and alert. No acute distress. HEENT: Normocephalic, atraumatic. PERRLA, EOMI. No conjunctival pallor. Sclera are non- icteric. Moist mucous membranes. Oropharynx is clear. NECK: Supple. Full ROM. No JVD. Carotid pulses 2+ and symmetric, without bruits. No thyromegaly. No lymphadenopathy. CARDIOVASCULAR: Regular rate and rhythm. No murmurs, rubs, or gallops. Distal pulses are 2+ and symmetric. PULMONARY: No evidence of respiratory distress. Lungs clear to auscultation bilaterally. No wheezing, rales or rhonchi. ABDOMINAL: Soft. Non-tender. Non-distended. No rebound or guarding. No organomegaly. Normoactive bowel sounds. MUSCULOSKELETAL Normal range of motion at all joints. No bony deformities or tenderness. No CVA tenderness. EXTREMITIES: No cyanosis. No clubbing. No edema. No calf tenderness. SKIN: Warm and dry. Normal capillary refill. No rashes. No jaundice. NEUROLOGICAL: Alert, awake, appropriate. Cranial nerves 2-12 intact. No deficits to light touch and temperature in face, upper extremities and lower extremities. No motor deficits in the in face, upper extremities and lower extremities. Normoreflexic in the upper and lower extremities. Normal speech. Toes are down- going bilaterally. Gait is normal without ataxia. PSYCHIATRIC: Cooperative. Good eye contact. Appropriate mood and affect : The external genitalia shows numerous vesicular lesions on the left labia. Introitus is normal, vaginal walker pink and moist without lesions or evidence of trauma. There is no cervical motion tenderness and the adnexa are without masses. There white discharge is present from the cervix. Vesicular lesions are also noted on the left cervix. Medical Decision Making - Medical Decision Making 12/29/16 11:46 Ms. Orona is a 41 y/o female with ESRD on dialysis presenting with vesicular lesions on her left lower back and left labia. This is most likely a presentation of herpes, most likely herpes simplex but also possibly shingles given the distribution. Obtained herpes cultures and serum as well as a GC/ Chalmydia culture. Will renal-dose valacylavir after speaking with her construction worker Dr. Lucia. Will also treat for a sheyla infection. Will discharge home with follow up with primary care. 1. Vaginal cultures 2. Valacyclavir 3. diflucan 4. Discharge *DC/Admit/Observation/Transfer Diagnosis at time of Disposition: Herpes Herpes genitalis Qualifiers: Herpes simplex infection site: vulvovaginitis Qualified Code(s): A60.04 - Herpesviral vulvovaginitis - Discharge Dispostion Disposition: HOME Condition at time of disposition: Improved Admit: No - Prescriptions Prescriptions: Valacyclovir HCl [Valtrex -] 500 mg PO DAILY #10 tablet - Patient Instructions Printed Discharge Instructions: DI for Genital Herpes, DI for Shingles Additional Instructions: You have a herpes infection. This is treated with Valacylavir. Make sure you picker and sorter load and unload the prescription from the pharmacy and take the full dose. We evens cultures today. You should call the ED in three days to get the results of your treatment. If you experience increasing pain, abnormal vaginal bleeding, fevers, chill, return to the ED - Post Discharge Activity Work/School Note: Back to Work
--- NOTE | 2016-12-29 11:45 | PDOC ---
*Physical Exam - Vital Signs Last Vital Signs Temp Pulse Resp BP Pulse Ox 98.4 F 110 H 18 106/75 98 12/29/16 09:19 12/29/16 09:19 12/29/16 09:19 12/29/16 09:19 12/29/16 09:19 Medical Decision Making - Medical Decision Making 12/29/16 11:40 Patient seen and evaluated with the nurse practitioner. I agree with the overall evaluation, assessment, and management with the following summary of visit: 41-year-old female presents with painful rash to buttocks and pelvis. Herpetic rash extending along the left buttock and left perineal region and into the vaginal canal and cervix More likely genital herpes, lower suspicion for shingles outbreak. Herpes titers sent, genital cultures sent. Patient is monogamous with her , has otherwise low risk for other STI. Will treat with been only dose acyclovir, discussed with patient's structural metal worker Dr. Lucia Understands return criteria *DC/Admit/Observation/Transfer Diagnosis at time of Disposition: Herpes simplex virus (HSV) infection - Prescriptions Prescriptions: Valacyclovir HCl [Valtrex -] 500 mg PO DAILY #10 tablet
[2016-12-29 12:05] VITALS: BP 110/64; PULSE 91
[2017-01-01 00:06] LABS: HSV 2 DNA. Negative (Negative)
== END 2016-12-29 12:05 | disposition home or self-care (01) ==
LOC: JER 09:11
DX: A60.04 Herpesviral vulvovaginitis (principal); D64.9 Anemia, unspecified; N18.6 End stage renal disease; Z99.2 Dependence on renal dialysis; I10 Essential (primary) hypertension
CPT/HCPCS: 36415; 87255; 87491; 87529; 87591; 99282-25

== ENCOUNTER 2016-12-31 12:36 | Emergency (ER) | payer OTHER, BC ==
[2016-12-31 12:42] VITALS: BMI 31.4
--- NOTE | 2016-12-31 16:41 | PDOC ---
History of Present Illness - General History Source: Patient, Old Records Exam Limitations: No Limitations - History of Present Illness Initial Comments: 12/31/16 18:38 The patient is a 41 year old female, with a significant past medical history of HTN and ESRD (on dialysis w/ left arm graft), who presents to the emergency department with intermittent episodes of confusion for the past 3 days. The patient was most recently seen in this ED on 12/29/2016 with a rash along her left lower back and left labia. The patient was evaluated, diagnosed with shingles and herpes, and was discharged home on Valacyclovir, which she states she has been taking. The patient returns to the ED because she reports that since she has been taking the Valacyclovir she has been experiencing intermittent periods of confusion. She reports that the episodes of confusion last a couple of minutes before resolving. She additionally reports some dysuria since taking the Valacyclovir. She presents to the ED because she is concerned the Valacyclovir is causing her symptoms. The patient states that her most recent dialysis was 12/28/2016 and she reports that she is due to be dialysed today at 7PM. The patient denies fever, chills, nausea, vomiting, diarrhea, constipation or any hematuria. Allergies: None reported. Past Surgical History: None reported. Social History: Non smoker. Denies alcohol or drug use. Die Hardener: Dr. Lucia <Arelis Mcdonough - Last Filed: 12/31/16 18:44> <Tee Magaña - Last Filed: 12/31/16 19:02> - General Chief Complaint: Lightheaded Stated Complaint: SHINGLES/MULT COMP Past History <Arelis Mcdonough - Last Filed: 12/31/16 18:44> - Past Medical History Anemia: Yes Asthma: No Cancer: No Cardiac Disorders: No CVA: No COPD: No CHF: No Dementia: No Diabetes: No Dialysis: Yes (Left arm graft) GI Disorders: No Disorders: Yes (PROTEIN IN URINE, CRI) HTN: Yes Hypercholesterolemia: No Liver Disease: No Suicide Attempt (Hx): No Seizures: No Thyroid Disease: Yes (HYPO, ESRD) - Surgical History Abdominal Surgery: No Appendectomy: No Cardiac Surgery: No Cholecystectomy: No Lung Surgery: No Neurologic Surgery: No Orthopedic Surgery: No - Family Disease History Family Disease History: Diabetes: Brother - Reproductive History Cervical CA: No Dysfunctional Uterine Bleeding: No Ectopic : No Endometrial CA: No Polycystic Ovaries: No Tubal Ligation: No - Immunization History Immunization Up to Date: Yes - Psycho/Social/Smoking Cessation Hx Anxiety: No Suicidal Ideation: No Smoking Status: No Smoking History: Never smoked Have you smoked in the past 12 months: No Number of Cigarettes Smoked Daily: 0 Information on smoking cessation initiated: No Hx Alcohol Use: No Drug/Substance Use Hx: No Substance Use Type: None Hx Substance Use Treatment: No <Tee Magaña - Last Filed: 12/31/16 19:02> - Past Medical History Allergies/Adverse Reactions: Allergies Allergy/AdvReac Type Severity Reaction Status Date / Time No Known Drug Allergies Allergy Verified 12/31/16 12:38 Home Medications: Ambulatory Orders Nifedipine ER [Procardia XL -] 60 mg PO BID 12/29/16 Valacyclovir HCl [Valtrex -] 500 mg PO DAILY #10 tablet 12/29/16 Ciprofloxacin [Cipro (Restricted To Id)] 250 mg PO BID #6 tablet 12/31/16 Review of Systems - Review of Systems Able to Perform ROS?: Yes Comments:: 12/31/16 18:21 GENERAL/CONSTITUTIONAL: +Confused. No fever or chills. No weakness. HEAD, EYES, EARS, NOSE AND THROAT: No change in vision. No ear pain or discharge. No sore throat. CARDIOVASCULAR: No chest pain or shortness of breath. RESPIRATORY: No cough, wheezing, or hemoptysis. GASTROINTESTINAL: No nausea, vomiting, diarrhea or constipation. GENITOURINARY: +Dysuria. No frequency or change in urination. MUSCULOSKELETAL: No joint or muscle swelling or pain. No neck or back pain. SKIN: No rash. NEUROLOGIC: No headache, vertigo, loss of consciousness, or change in strength/ sensation. ENDOCRINE: No increased thirst. No abnormal weight change. HEMATOLOGIC/LYMPHATIC: No anemia, easy bleeding, or history of blood clots. ALLERGIC/IMMUNOLOGIC: No hives or skin allergy. <Arelis Mcdonough - Last Filed: 12/31/16 18:44> *Physical Exam - Vital Signs Last Vital Signs Temp Pulse Resp BP Pulse Ox 97.5 F L 98 H 18 163/105 100 12/31/16 12:39 12/31/16 12:39 12/31/16 12:39 12/31/16 12:39 12/31/16 12:39 - Physical Exam Comments: 12/31/16 18:06 GENERAL: Awake, alert, and fully oriented, in no acute distress. HEAD: No signs of trauma. EYES: PERRLA, EOMI, sclera anicteric, conjunctiva clear. ENT: Auricles normal inspection, hearing grossly normal, nares patent, oropharynx clear without exudates. Moist mucosa. NECK: Normal ROM, supple, no lymphadenopathy, JVD, or masses. LUNGS: Breath sounds equal, clear to auscultation bilaterally. No wheezes, and no crackles. HEART: Regular rate and rhythm, normal S1 and S2, no murmurs, rubs or gallops. ABDOMEN: Soft, nontender, normoactive bowel sounds. No guarding, no rebound. No masses. EXTREMITIES: Normal range of motion, no edema. No clubbing or cyanosis. No cords, erythema, or tenderness. NEUROLOGICAL: Cranial nerves II through XII grossly intact. Normal speech, normal gait. SKIN: Warm, dry, normal turgor, no rashes or lesions noted. <Arelis Mcdonough - Last Filed: 12/31/16 18:44> - Vital Signs Last Vital Signs Temp Pulse Resp BP Pulse Ox 97.5 F L 98 H 18 163/105 100 12/31/16 12:39 12/31/16 12:39 12/31/16 12:39 12/31/16 12:39 12/31/16 12:39 <Tee Magaña - Last Filed: 12/31/16 19:02> ED Treatment Course - LABORATORY CBC & Chemistry Diagram: 12/31/16 17:30 12/31/16 17:30 <Arelis Mcdonough - Last Filed: 12/31/16 18:44> - LABORATORY CBC & Chemistry Diagram: 12/31/16 17:30 12/31/16 17:30 <Tee Magaña - Last Filed: 12/31/16 19:02> Medical Decision Making - Medical Decision Making 12/31/16 18:[address] Lucia at at 18:45. Referred to answering service, awaiting callback. <Arelis Mcdonough - Last Filed: 12/31/16 18:44> - Medical Decision Making 12/31/16 18:59 EPISODIC CONFUSION CAN BE CAUSED BY ACYCLOVIR (IN THE LITERATURE). <Tee Magaña - Last Filed: 12/31/16 19:02> *DC/Admit/Observation/Transfer - Attestations Scribe Attestion: 12/31/16 16:45 Documentation prepared by Arelis Mcdonough, acting as medical pathologist for Tee Magaña MD, MD/DO. <Arelis Mcdonough - Last Filed: 12/31/16 18:44> - Discharge Dispostion Admit: No <Tee Magaña - Last Filed: 12/31/16 19:02> Diagnosis at time of Disposition: Intermittent confusion, Urinary tract infection - Discharge Dispostion Disposition: HOME Condition at time of disposition: Stable - Prescriptions Prescriptions: Ciprofloxacin [Cipro (Restricted To Id)] 250 mg PO BID #6 tablet - Patient Instructions Printed Discharge Instructions: Urinary Tract Infection Additional Instructions: GO TO DIALYSIS NOW AFTER DISCHARGE.
[2016-12-31 17:34] LABS: BASOPHIL 1.6 % (0-2.0); MCHC 33.1 g/dl (32.0-36.0); MEAN CELL VOLUME 99.5 fl (80-96); MEAN PLT VOLUME 9.7 fl (7.5-11.1); NEUTROPHILS 41.4 % (42.8-82.8); PLATELET COUNT 189 K/MM3 (134-434); RDW 14.5 % (11.6-15.6); WHITE BLOOD COUNT 7.9 K/mm3 (4.0-10.0)
[2016-12-31 18:02] LABS: ALBUMIN 3.8 g/dl (3.4-5.0); BILIRUBIN,TOTAL 0.3 mg/dL (0.2-1.0); CALCIUM 8.7 mg/dL (8.5-10.1); TOT PROT 8.3 g/dl (6.4-8.2)
[2016-12-31 18:05] VITALS: BP 165/102; PULSE 81; TEMP 98
[2016-12-31 18:25] LABS: URINE APPEARANCE CLEAR; URINE BILIRUBIN NEGATIVE (NEGATIVE); URINE BLOOD 3+ (NEGATIVE); URINE COLOR STRAW; URINE GLUCOSE (UA) 1+ (NEGATIVE); URINE KETONE NEGATIVE (NEGATIVE); URINE LEUK ESTERASE 3+ (NEGATIVE); URINE NITRITE NEGATIVE (NEGATIVE); URINE PROTEIN 2+ (NEGATIVE); URINE UROBILINOGEN NEGATIVE E.U./dl (0.2-1.0)
[2016-12-31 18:31] LABS: URINE RBC 6 /hpf (0-3); URINE WBC 21 /hpf (3-5)
[2016-12-31] MEDS ORDERED: CIPROFLOXACIN 250 MG TABLET (RESTRICTED TO ID) PO ONE (18:53)
== END 2016-12-31 19:10 | disposition home or self-care (01) ==
LOC: JER 12:36
DX: R41.0 Disorientation, unspecified (principal); R30.0 Dysuria; D64.9 Anemia, unspecified; Z99.2 Dependence on renal dialysis; I10 Essential (primary) hypertension
CPT/HCPCS: 36415; 80053; 81003; 81015; 84703; 85025; 87086; 99282-25

== ENCOUNTER 2017-09-19 17:58 | Emergency (ER) | payer OTHER ==
[2017-09-19 18:15] VITALS: TEMP 98.3; BMI 30.6
--- NOTE | 2017-09-19 19:20 | PDOC ---
History of Present Illness - General History Source: Patient Exam Limitations: No Limitations - History of Present Illness Initial Comments: 09/19/17 19:46 The patient is a 42 year old female with history of hypertension, CKD on HD TTS , who presents to the ED complaining of approximately 1 day of generalized weakness. She reports she was unable to go to dialysis on Tuesday and has not been able to make up her session. She also complains of associated subjective fever and chills this morning, now improved. She denies any nausea, vomiting, or diarrhea. She denies chest pain or shortness of breath. She denies any cough or shortness of breath. She denies any urinary complaints. PCP: None (Pt of [facility]) Nephrology: Dr. Mirna Morse Dialysis at [facility] [phone] <Saniya Wadsworth - Last Filed: 09/20/17 00:04> <Angelo Florian - Last Filed: 09/20/17 01:06> - General Chief Complaint: Weakness Stated Complaint: DIALYSIS TREATMENT Time Seen by Provider: 09/19/17 19:19 Past History <Saniya Wadsworth - Last Filed: 09/20/17 00:04> - Past Medical History Anemia: Yes Asthma: No Cancer: No Cardiac Disorders: No CVA: No COPD: No CHF: No Dementia: No Diabetes: No Dialysis: Yes (, , Tue) GI Disorders: No Disorders: No HTN: Yes Hypercholesterolemia: No Liver Disease: No Seizures: No Thyroid Disease: Yes - Surgical History Abdominal Surgery: No Appendectomy: No Cardiac Surgery: No Cholecystectomy: No Lung Surgery: No Neurologic Surgery: No Orthopedic Surgery: No - Family Disease History Family Disease History: Diabetes: Brother - Reproductive History Cervical CA: No Dysfunctional Uterine Bleeding: No Ectopic : No Endometrial CA: No Polycystic Ovaries: No Tubal Ligation: No - Immunization History Immunization Up to Date: Yes - Suicide/Smoking/Psychosocial Hx Smoking Status: No Smoking History: Never smoked Have you smoked in the past 12 months: No Number of Cigarettes Smoked Daily: 0 Hx Alcohol Use: No Drug/Substance Use Hx: No Substance Use Type: None Hx Substance Use Treatment: No <Angelo Florian - Last Filed: 09/20/17 01:06> - Past Medical History Allergies/Adverse Reactions: Allergies Allergy/AdvReac Type Severity Reaction Status Date / Time No Known Drug Allergies Allergy Verified 09/19/17 18:12 Home Medications: Ambulatory Orders Nifedipine ER [Procardia XL -] 60 mg PO BID 12/29/16 Cinacalcet HCl [Sensipar] 30 mg PO DAILY 08/22/17 Sevelamer Carbonate [Renvela] 1,600 mg PO CM 08/22/17 Review of Systems - Review of Systems Able to Perform ROS?: Yes Comments:: 09/19/17 20:03 A complete review of 10 out of 10 review of systems is taken and is negative apart from what is previously mentioned below and in the HPI. <Saniya Wadsworth - Last Filed: 09/20/17 00:04> *Physical Exam - Vital Signs Last Vital Signs Temp Pulse Resp BP Pulse Ox 98.3 F 86 18 144/88 100 09/19/17 18:12 09/19/17 18:12 09/19/17 18:12 09/19/17 18:12 09/19/17 18:12 - Physical Exam Comments: 09/19/17 20:36 Vitals: Triage Vital signs reviewed General Appearance: no acute distress, well nourished well developed Head: Atraumatic Eyes: Pupils equal reactive round, extraocular movement intact Ears: TM's normal bilaterally Nose: Nares patent bilaterally; no nasal congestion Throat: Posterior oropharynx without erythema, mucous membranes moist Neck: Supple; No Nucal rigidity Cardiac: Regular rate and rhythym, no murmurs, no rubs, no gallops Lungs: Clear to auscultation bilateral, good air movement bilaterally Abdomen: Soft, non distended, normal bowel sounds, non tender to palpation Extremities: LUE AV intact, no erythema or warmth, +thrill. Full ROM. No cyanosis, clubbing, or edema. All other extremities. Full range of motion to all extremities, no cyanosis, clubbing, or edema Skin: Warm and dry, no rashes or lesions, no rash, no petechiae. AVG as noted in EXTREMITIES. Neuro: AOX3; Cranial Nerves 2-12 grossly intact, Strength intact to all extremities, Sensation intact to all extremities, gait normal Psych: Normal mood, normal affect <Saniya Wadsworth - Last Filed: 09/20/17 00:04> - Vital Signs Last Vital Signs Temp Pulse Resp BP Pulse Ox 98.3 F 86 18 144/88 100 09/19/17 18:12 09/19/17 18:12 09/19/17 18:12 09/19/17 18:12 09/19/17 18:12 <Angelo Florian - Last Filed: 09/20/17 01:06> Heart Score/ECG Review #1 09/19/17 20:19 EKG performed at 20:05 demonstrates rate of 76, rhythm of normal sinus, axis equal to normal. Demonstrates peak T waves V2, V3. #2 09/20/17 00:02 Repeat EKG obtained 23:58. EKG performed at 23:58 demonstrates rate of 85, rhythm of NSR, axis equal to normal. Improving T waves. <Saniya Wadsworth - Last Filed: 09/20/17 00:04> ED Treatment Course - LABORATORY CBC & Chemistry Diagram: 09/19/17 20:00 09/19/17 20:00 <Saniya Wadsworth - Last Filed: 09/20/17 00:04> - LABORATORY CBC & Chemistry Diagram: 09/19/17 20:00 09/19/17 23:49 <Angelo Florian - Last Filed: 09/20/17 01:06> Medical Decision Making - Medical Decision Making 09/19/17 20:06 Documentation prepared by Saniya Wadsworth, acting as medical imaging technologist for Angelo Florian MD. <Saniya Wadsworth - Last Filed: 09/20/17 00:04> - Medical Decision Making 09/20/17 00:52 Pt. presented to the emergency department missing her Tuesday dialysis. Well- appearing no apparent distress stated maybe she felt a little bit weak In the emergency Department patient noted to have very slight peaked T waves on EKG with a potassium of 5.9. She is scheduled for dialysis tomorrow morning Patient will prefer to return home and follow up at dialysis tomorrow here in the emergency department we have treated her hyperkalemia and her repeat potassium is 4.6 and to repeat EKG demonstrates no peaked T waves Reevaluation 1 AM patient well-appearing no apparent distress feels well amenable with plan to follow up with dialysis first thing in the morning Findings, the need follow-up and strict return instructions discussed with patient. <Chiqui,Angelo - Last Filed: 09/20/17 01:06> *DC/Admit/Observation/Transfer <Saniya Wadsworth - Last Filed: 09/20/17 00:04> - Discharge Dispostion Admit: No <Angelo Florian - Last Filed: 09/20/17 01:06> Diagnosis at time of Disposition: Hyperkalemia - Patient Instructions Printed Discharge Instructions: Hyperkalemia Additional Instructions: Follow-up tomorrow morning at dialysis. Return to the emergency department for any severe worsening symptoms or for any concerns. Your initial potassium was 5.9. On your repeat it was 4.6.
[2017-09-19 20:04] LABS: BASOPHIL 1.1 % (0-2.0); EOSINOPHIL 6.4 % (0-4.5); MCH 33.1 pg (25.7-33.7); MCHC 33.7 g/dl (32.0-36.0); MEAN CELL VOLUME 98.3 fl (80-96); MEAN PLT VOLUME 9.5 fl (7.5-11.1); NEUTROPHILS 44.7 % (42.8-82.8); PLATELET COUNT 173 K/MM3 (134-434); RDW 14.7 % (11.6-15.6); WHITE BLOOD COUNT 5.9 K/mm3 (4.0-10.0)
[2017-09-19 20:51] LABS: ALBUMIN 3.2 g/dl (3.4-5.0); ANION GAP 15 (8-16); CALCIUM 7.4 mg/dL (8.5-10.1); CO2 21 mmol/L (21-32); GLUCOSE,RANDOM 84 mg/dL (74-106); SGOT/AST 6 U/L (15-37); SGPT/ALT 11 U/L (12-78)
[2017-09-19 20:58] LABS: ALK PHOS 64 U/L (45-117); BILIRUBIN,TOTAL 0.3 mg/dL (0.2-1.0); TOT PROT 7.4 g/dl (6.4-8.2)
[2017-09-19] MEDS ORDERED: INSULIN REGULAR HUMAN 100 UNITS/ML *VIAL IVPUSH ONE (21:08)
[2017-09-19] MEDS ORDERED: CALCIUM GLUCONATE 10% - 1,000 MG/10 ML VIAL IVPB ONE (21:08)
[2017-09-19] MEDS ORDERED: SODIUM BICARBONATE 4.2% 5 MEQ/10 ML DISP.SYRIN IVPUSH ONE ×2 (21:08→21:29)
[2017-09-19 21:10] LABS: URINE APPEARANCE CLEAR; URINE BILIRUBIN NEGATIVE (NEGATIVE); URINE BLOOD 1+ (NEGATIVE); URINE COLOR STRAW; URINE GLUCOSE (UA) 2+ (NEGATIVE); URINE KETONE NEGATIVE (NEGATIVE); URINE NITRITE NEGATIVE (NEGATIVE); URINE UROBILINOGEN NEGATIVE mg/dL (0.2-1.0)
[2017-09-19 21:12] LABS: URINE PROTEIN 2+ (NEGATIVE)
[2017-09-19 21:13] LABS: URINE BACTERIA RARE /hpf (NONE SEEN); URINE RBC <1 /hpf (0-3); URINE WBC 1 /hpf (3-5)
[2017-09-19] MEDS ORDERED: DEXTROSE 10%-WATER - 1,000 ML IV SCH (21:15)
[2017-09-19] MEDS ORDERED: DEXTROSE 50%-WATER - 25 GM/50 ML VIAL ONE (21:29)
[2017-09-19] MEDS ORDERED: CALCIUM GLUCONATE 10% - 1,000 MG/10 ML VIAL ONE (21:29)
[2017-09-19] MEDS ORDERED: SODIUM BICARBONATE 8.4% 50 MEQ/50 ML VIAL IV ONE (21:40)
[2017-09-19] MEDS ORDERED: DEXTROSE 50%-WATER - 25 GM/50 ML VIAL IVPUSH ONE (21:41)
[2017-09-19 22:41] LABS: URINE LEUK ESTERASE Negative (NEGATIVE)
[2017-09-20 01:28] VITALS: BP 147/92; PULSE 87
--- NOTE | 2017-09-20 12:25 | EKG ---
Test Reason : Blood Pressure : / mmHG Vent. Rate : 076 BPM Atrial Rate : 076 BPM P-R Int : 176 ms QRS Dur : 078 ms QT Int : 402 ms P-R-T Axes : 041 051 054 degrees QTc Int : 452 ms NORMAL SINUS RHYTHM NORMAL ECG WHEN COMPARED WITH ECG OF 17-DEC-2016 14:03, PREVIOUS EKG HAS SIGNIFICAT BASELINE ARTIFACTS COMPARISON REPEAT EKG IF CLINICALLY INDICATED Confirmed by BENITA DEXTER MD ([id number]) on 09/20/2017 12:24:48 PM Referred By: Confirmed By:BENITA DEXTER MD
--- NOTE | 2017-09-20 13:54 | EKG ---
Test Reason : Blood Pressure : / mmHG Vent. Rate : 085 BPM Atrial Rate : 085 BPM P-R Int : 180 ms QRS Dur : 076 ms QT Int : 396 ms P-R-T Axes : 049 048 049 degrees QTc Int : 471 ms NORMAL SINUS RHYTHM PROBABLE LEFT ATRIAL ABNORMALITY WHEN COMPARED WITH ECG OF 19-SEP-2017 20:05, NO SIGNIFICANT CHANGE WAS FOUND REPEAT EKG IF CLINICALLY INDICATED Confirmed by BENITA DEXTER MD ([id number]) on 09/20/2017 1:54:18 PM Referred By: Confirmed By:BENITA DEXTER MD
== END 2017-09-20 01:29 | disposition home or self-care (01) ==
LOC: JER 17:58 → JERBED 23:42 → UNDOADMOB 23:42 → JER 09-20 01:29
PROC: 3E033VG Introduction of Insulin into Peripheral Vein, Percutaneous Approach (ICD-10-PCS; principal; 2017-09-19)
PROC: 3E033GC Introduction of Other Therapeutic Substance into Peripheral Vein, Percutaneous Approach (ICD-10-PCS; 2017-09-19)
DX: E87.5 Hyperkalemia (principal); I12.0 Hypertensive chronic kidney disease with stage 5 chronic kidney disease or end stage renal disease; N18.6 End stage renal disease; N17.8 Other acute kidney failure; Z99.2 Dependence on renal dialysis
CPT/HCPCS: 36415; 71010-TC; 80053; 81003; 81015; 84132; 85025; 86850; 86900; 86901; 93005; 93010; 96374; 96375; 99283-25